=== PATIENT | female | born 1990 | race American Indian/Alaskan Native ===

== ENCOUNTER 2017-02-12 22:06 | Emergency (ER) | payer MEDICAID ==
[2017-02-13] MEDS ORDERED: MOTRIN PO ONE (02:40)
--- NOTE | 2017-02-13 02:40 | Emergency Department Report ---
- General Chief Complaint: Upper Respiratory Infection Stated Complaint: FACIAL PAIN Time Seen by Provider: 02/13/17 02:17 Source: patient Mode of arrival: Ambulatory Limitations: No Limitations - History of Present Illness Initial Comments: This is a 26-year-old female well-nourished with nontoxic or ill in appearance that presents with dry cough, headache, sore throat, body aches for the past month. Patient also states she is currently 20 weeks with no vaginal bleeding. Patient describes sore throat as feeling of razer blade when swallowing. Patient complains of subjective fever with chills. Patient has a significant symptoms include gradual onset of headache that is not the worse headache of her life area and discuss headache as aching and throbbing with a level II out of 10. Patient denies thunderclap headache, blurry vision, chest pain, shortness of breath, wheezing, abdominal pain, vaginal bleeding, pelvic pain, stiff neck, nausea or vomiting. 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 Patient stated last visit with her [facility]ESS was normal for her currently. Patient denies any allergies. Denies any past medical history. Pt denies recent travels or sick contacts. MD Complaint: fever, cough, sore throat -: Gradual, month(s) (1) Severity: mild Severity scale (0 -10): 2 Quality: aching Consistency: intermittent (headache) Improves With: nothing Worsens With: nothing Associated Symptoms: fever, chills, headache, sore throat, cough. denies: myalgias, diaphoresis, rhinorrhea, nasal congestion, stiff neck, chest pain, shortness of breath, abdominal pain, nausea, vomiting, diarrhea, dysuria, rash, confusion, right sweats, weight loss, epistaxis, hoarseness, ear pain Treatments Prior to Arrival: none - Related Data Previous Rx's Medication Instructions Recorded Last Taken Type Amoxicillin 500 mg PO BID 10 Days 02/13/17 Unknown Rx Allergies Allergy/AdvReac Type Severity Reaction Status Date / Time No Known Allergies Allergy Unverified 02/12/17 22:49 ED Review of Systems ROS: Stated complaint: FACIAL PAIN Other details as noted in HPI Constitutional: denies: chills, fever Eyes: denies: eye pain, eye discharge, vision change ENT: throat pain. denies: ear pain Respiratory: cough. denies: shortness of breath, wheezing Cardiovascular: denies: chest pain, palpitations, dyspnea on exertion, orthopnea , edema, syncope, paroxysmal nocturnal dyspnea Endocrine: no symptoms reported Gastrointestinal: denies: abdominal pain, nausea, diarrhea, constipation, hematemesis, melena, hematochezia Genitourinary: denies: urgency, dysuria, discharge Musculoskeletal: denies: back pain, joint swelling, arthralgia Skin: denies: rash, lesions Neurological: headache. denies: weakness, paresthesias Psychiatric: denies: anxiety, depression Hematological/Lymphatic: denies: easy bleeding, easy bruising ED Past Medical Hx - Past Medical History Previous Medical History?: No - Surgical History Past Surgical History?: No - Social History Smoking Status: Never Smoker Substance Use Type: None - Medications Home Medications: Home Medications Medication Instructions Recorded Confirmed Last Taken Type Amoxicillin 500 mg PO BID 10 Days 02/13/17 Unknown Rx ED Physical Exam - General Limitations: No Limitations General appearance: alert, in no apparent distress - Head Head exam: Present: atraumatic, normocephalic, normal inspection - Eye Eye exam: Present: normal appearance, PERRL, EOMI. Absent: scleral icterus, conjunctival injection, nystagmus, periorbital swelling, periorbital tenderness - ENT ENT exam: Present: mucous membranes moist - Expanded ENT Exam Expanded Ear exam: Present: normal external inspection Mouth exam: Present: normal external inspection, tongue normal. Absent: drooling, trismus, muffled voice, tongue elevation, laceration Teeth exam: Present: normal inspection Throat exam: Positive: normal inspection, tonsillar erythema, tonsillomegaly (2+ ), tonsillar exudate. Negative: R peritonsillar mass, L peritonsillar mass - Neck Neck exam: Present: normal inspection, full ROM. Absent: tenderness, meningismus, lymphadenopathy, thyromegaly, other (stiff neck) - Respiratory Respiratory exam: Present: normal lung sounds bilaterally. Absent: respiratory distress, wheezes, rales, rhonchi, stridor - Cardiovascular Cardiovascular Exam: Present: regular rate, normal rhythm, normal heart sounds. Absent: bradycardia, tachycardia, irregular rhythm, systolic murmur, diastolic murmur, rubs, gallop - GI/Abdominal GI/Abdominal exam: Present: soft, normal bowel sounds. Absent: distended, tenderness, guarding, rebound, rigid, diminished bowel sounds - Extremities Exam Extremities exam: Present: normal inspection, full ROM, normal capillary refill. Absent: tenderness, pedal edema, joint swelling, calf tenderness - Back Exam Back exam: Present: normal inspection, full ROM. Absent: tenderness, CVA tenderness (R), CVA tenderness (L), muscle spasm, paraspinal tenderness, vertebral tenderness, rash noted - Neurological Exam Neurological exam: Present: alert, oriented X3, CN II-XII intact, normal gait - Psychiatric Psychiatric exam: Present: normal affect, normal mood - Skin Skin exam: Present: warm, dry, intact, normal color. Absent: rash ED Course Vital Signs 02/12/17 22:45 Temperature 98.4 F Pulse Rate 73 Respiratory 20 Rate Blood Pressure 100/54 O2 Sat by Pulse 97 Oximetry ED Medical Decision Making - Medical Decision Making Ed course: This is a 26-year-old female that presents with 2+ exudative tonsillitis. 1-after physical exam, patient received amoxicillin 500 mg by mouth for 10 days at the time of discharge. 2- influenza AB antigen has been obtained to rule out flu and patient received ibuprofen 600 mg by mouth in the ED. 3- patient was referred to Dr. Adan [facility] to follow-up in 24 hours. 4- patient was also instructed to follow-up with a primary care doctor in 3-5 days or if symptoms worsen report back to the emergency room as well as possible 5- at time time of discharge, the patient does not seem toxic or ill in appearance. No acute signs of distress noted. Patient agrees to discharge treatment plan of care. No further questions noted by the patient. Critical care attestation.: If time is entered above; I have spent that time in minutes in the direct care of this critically ill patient, excluding procedure time. ED Disposition Clinical Impression: Tonsillitis with exudate, Bronchitis Disposition: DISCHARGED TO HOME OR SELFCARE Is pt being admited?: No Does the pt Need Aspirin: No Condition: Stable Instructions: Amoxicillin (By mouth), Acute Bronchitis (ED), Tonsillitis (ED) Additional Instructions: Follow-up with Dr. Adan or your preferred [facility]WAITRESS in 24 hours. Follow-up with a primary care doctor in 3-5 days or if symptoms worsen report back to the emergency room as well as possible Take full course of antibiotics as prescribed. Prescriptions: Amoxicillin 500 mg PO BID 10 Days Referrals: PRIMARY CAREMD [Primary Care Provider] - 3-5 Days [facility] [Outside] - 3-[address] [facility] [Outside] - 3-5 Days BALJIT ADAN MD [Staff Physician] - 24 Hours [facility] [Provider Group] - 24 Hours MARLENE REYES MD [Referring] - 3-5 Days Forms: Work/School Release Form(ED)
[2017-02-13 04:19] VITALS: BP 102/62
== END 2017-02-13 03:10 | disposition home or self-care (01) ==
LOC: ED 22:06
DX: J03.90 Acute tonsillitis, unspecified (principal); J40 Bronchitis, not specified as acute or chronic
CPT/HCPCS: 87400; 99282